=== PATIENT | male | born 1955 | race Caucasian/White ===

== ENCOUNTER → 2016-09-13 | Outpatient (CLI) | payer OTHER ==
[~2016-09-13] MED LIST: ACID REDUCER150 MG PO; ADVAIR 500-501 EACH IH; ADVAIR 5001 DISK W/1 IH; ALAVERT10 M1 PO; ALBUTEROL 0.5ML INH; ALBUTEROL0.83 MG/ML IH; ALBUTEROL1.25 MG/3 INH; ALBUTEROL17 GM INH; ATORVASTATIN CA80 MG PO; BUPROPION XL300 MG PO; CLARITIN10 M2 PO; DALIRESP500 MCG PO; DIABETIC S100 MG/5 M PO; DIPHENHYDRAMINE25 M1 PO; FENOFIBRATE48 MG PO; FERRO-TIME325 MG PO; FLONASE 0.05% N16 G1; GLUCOPHAGE500 MG PO; HYDROCODON-ACE1 EAC5 PO; LEVAQUIN PO; LEVAQUIN750 MG PO; LINZESS145 MCG PO; LOPID600 MG PO; LORTAB 10/500 T1 TAB PO; LORTAB 7.5-5001 TAB PO; MEDROL4 MG/DOSE- PO; METFORMIN PO; MIRTAZAPINE30 MG PO; NEURONTIN100 MG PO; NICOTINE TRANSD21 MG EXT; OMEPRAZOLE20 M1 PO; OXYGEN; PARAFON FORTE500 M2 PO; PARAFON FORTE500 MG PO; PERCOCET 10/31 UDTA1 PO; PRAVASTATIN SOD80 MG PO; PREDNISONE PO; PRILOSEC PO; PROVENTIL INH0.5 ML HHN; QUETIAPINE FUM200 MG PO; REMERON30 MG PO; SENNA LAXATIVE8.6 M1 PO; SEROQUEL PO; SIMVASTATIN40 MG PO; SPIRIVA18 MCG INH; SYMBICORT INH; VOLTAREN75 MG PO; WELLBUTRIN PO; WELLBUTRIN XL PO; ZALEPLON10 MG PO; ZANAFLEX4 M1 PO; ZETIA PO; ZITHROMAX500 MG PO
== END | disposition home or self-care (01) ==
LOC: CRC 09:50
DX: J44.9 Chronic obstructive pulmonary disease, unspecified (principal); F17.210 Nicotine dependence, cigarettes, uncomplicated
CPT/HCPCS: 94060; 94726; 94729